=== PATIENT | male | born 1960 | race Two or more races ===

== ENCOUNTER 2020-03-10 15:32 | Inpatient (IN) | payer BC, OTHER ==
[~2020-03-10] VITALS: Ht 165.1 cm; Wt 59.9 kg
[2020-03-10] MEDS ORDERED: SODIUM CHLORIDE 0.9% 500 ML IV ONE (16:45)
[2020-03-10] MEDS ORDERED: DEXTROSE 50% WATER 50ML SYRINGE IV ONE (16:45)
[2020-03-10 17:02] LABS: HEMATOCRIT. 41.1 % (42.0-52.0); MEAN CORPUSCULAR VOLUME 93.9 fL (80.0-94.0); PLATELET 420 x1000/uL (130-400); RED BLOOD CELL COUNT 4.38 mill/uL (4.7-6.1); RED CELL DISTRIBUTION WIDTH 13.8 % (11.6-14.6)
[2020-03-10 17:11] LABS: CHLORIDE 93 mEq/L (98-107)
[2020-03-10 17:27] LABS: PLATELET ESTIMATE SLIGHTLY INCREASED
[2020-03-10] MEDS ORDERED: DEXAMETHASONE 10 MG/ML VIAL IV ONE (19:15)
[2020-03-10] MEDS ORDERED: ENOXAPARIN 60MG/0.6ML SYR SUBCUT ONE (19:15)
[2020-03-10] MEDS ORDERED: ENOXAPARIN 80MG/0.8ML SYR SUBCUT NR (19:30)
[2020-03-10] MEDS ORDERED: ONDANSETRON HCL 4MG/2ML INJ IV PRN (21:45)
[2020-03-10] MEDS ORDERED: ACETAMINOPHEN 325MG TABLET PO PRN (21:45)
[2020-03-10] MEDS ORDERED: ZOLPIDEM TARTRATE 5MG TABLET PO PRN (21:45)
[2020-03-10] MEDS ORDERED: ALBUTEROL 6.7GM HFA INHALER ORI PRN (21:45)
[2020-03-10] MEDS ORDERED: CEFTRIAXONE 1 G PREMIX 50 ML IV SCH ×2 (21:45→23:00)
[2020-03-10] MEDS ORDERED: MORPHINE SULFATE 4 MG/ML CPJ (NOT FOR IM USE) IV ONE (22:15)
[2020-03-10] MEDS: SODIUM CHLORIDE 0.9% INJ 3ML FLUSH IVF SCH (22:40)
[2020-03-11] MEDS ORDERED: AZITHROMYCIN 500 MG in DEXT 5% WATER 250 ML IV SCH ×2
[2020-03-11 04:00] LABS: HEMATOCRIT. 41.8 % (42.0-52.0); HEMOGLOBIN. 14.1 g/dL (14.0-18.0); MEAN CORPUSCULAR HEMOGLOBIN 31.8 pg (28.0-32.0); MEAN CORPUSCULAR VOLUME 94.1 fL (80.0-94.0); MEAN PLATELET VOLUME 6.8 fl (7.4-10.4); PLATELET 364 x1000/uL (130-400); RED BLOOD CELL COUNT 4.44 mill/uL (4.7-6.1); RED CELL DISTRIBUTION WIDTH 13.7 % (11.6-14.6)
[2020-03-11 04:06] LABS: CHLORIDE 90 mEq/L (98-107)
[2020-03-11 04:12] LABS: PHOSPHORUS 4.2 mg/dL (2.5-4.9)
[2020-03-11] MEDS: SODIUM CHLORIDE 0.9% INJ 3ML FLUSH IVF SCH ×2 (04:31→14:54)
[2020-03-11] MEDS: ACETAMINOPHEN 325MG TABLET PO PRN ×2 (04:34→21:37)
[2020-03-11 04:45] LABS: PLATELET ESTIMATE NORMAL
[2020-03-11] MEDS ORDERED: PANTOPRAZOLE SODIUM 40 MG/VIAL IV SCH (09:00)
[2020-03-11] MEDS ORDERED: INSULIN GLARGINE UD 100 UNITS/ML SYR SUBCUT SCH (10:00)
[2020-03-11] MEDS ORDERED: SODIUM POLYSTYRENE SULFONATE 15 G/60 ML BOT PO NR (10:00)
[2020-03-11] MEDS: INSULIN LISPRO 100 UNITS/ML SUBCUT SCH ×4 (10:20→21:29)
[2020-03-11] MEDS: FAMOTIDINE 20MG/2ML VIAL IV SCH (10:21)
[2020-03-11] MEDS: BLOOD SUGAR DIAGNOSTIC STRIP TEST SCH ×4 (10:21→21:42)
[2020-03-11 10:51] LABS: BG BASE EXCESS -2.7 mmol/L (-2.0-2.0); BG CARBOXYHEMOGLOBIN 0.7 % (0.5-1.5); BG DEOXYHEMOGLOBIN 10.3 % (0.0-5.0); BG FRACTION INSPIRED OXYGEN 100; BG HCO3 ACT 20.4 mmol/L (22.0-26.0); BG METHEMOGLOBIN 0.3 % (0.0-1.5); BG OXYGEN SATURATION 89.6 % (92.0-98.5); BG OXYHEMOGLOBIN 88.7 % (94.0-97.0); BG PCO2 30.6 mmHg (35.0-45.0); BG PH 7.441 (7.350-7.450); BG PO2 57.4 mmHg (75.0-100.0); BG SAMPLE SITE RIGHT BRACHIAL; BG TOTAL HEMOGLOBIN 13.9 g/dL (12.0-18.0); BG VENT MODE MASK - NRB
[2020-03-11] MEDS: MYCOPHENOLATE MOFETIL 250MG CAPSULE PO SCH ×2 (13:42→21:41)
[2020-03-11] MEDS: GUAIFENESIN 600MG ER TABLET PO SCH ×2 (13:43→21:27)
[2020-03-11] MEDS: ENOXAPARIN 60MG/0.6ML SYR SUBCUT SCH ×2 (13:44→21:42)
[2020-03-11] MEDS: DEXAMETHASONE 10 MG/ML VIAL IV SCH (13:45)
[2020-03-11] MEDS: CHOLECALCIFEROL (D3) 1000 UNIT TABLET PO SCH (18:20)
[2020-03-11] MEDS: DOXYCYCLINE HYCLATE 100MG CAPSULE PO SCH (18:20)
[2020-03-11] MEDS: SODIUM CHLORIDE 0.9% 1,000 ML IV SCH (18:20)
[2020-03-11] MEDS: CEFTRIAXONE 1,000 MG in DEXTROSE 5% WATER 50 ML IV SCH (18:21)
[2020-03-11 20:00] VITALS: BP 164/92
[2020-03-11] MEDS ORDERED: CEFTRIAXONE 1 G PREMIX 50 ML IV SCH (23:00)
[2020-03-12] MEDS ORDERED: AZITHROMYCIN 500 MG in DEXT 5% WATER 250 ML IV SCH ×2
[2020-03-12] MEDS: DIPHENHYDRAMINE 50MG/ML VIAL IV PRN (01:31)
[2020-03-12 04:00] VITALS: BP 187/105
[2020-03-12] MEDS: SODIUM CHLORIDE 0.9% INJ 3ML FLUSH IVF SCH ×4 (05:14→21:22)
[2020-03-12] MEDS: SODIUM CHLORIDE 0.9% 1,000 ML IV SCH (05:14)
[2020-03-12] MEDS: DOXYCYCLINE HYCLATE 100MG CAPSULE PO SCH ×2 (05:16→18:13)
[2020-03-12] MEDS: CLONIDINE 0.1MG TABLET PO PRN ×2 (05:20→21:21)
[2020-03-12] MEDS: BENZONATATE 100MG CAPSULE PO PRN (05:36)
[2020-03-12] MEDS: INSULIN LISPRO 100 UNITS/ML SUBCUT SCH ×4 (06:24→21:00)
[2020-03-12] MEDS: BLOOD SUGAR DIAGNOSTIC STRIP TEST SCH ×4 (06:25→21:13)
[2020-03-12 06:52] LABS: INR 1.1; PROTHROMBIN TIME 11.4 sec (9.6-11.0)
[2020-03-12 06:59] LABS: CHLORIDE 96 mEq/L (98-107)
[2020-03-12 07:02] LABS: HEMOGLOBIN. 13.9 g/dL (14.0-18.0); MEAN CORPUSCULAR HEMOGLOBIN 31.9 pg (28.0-32.0); MEAN CORPUSCULAR VOLUME 94.2 fL (80.0-94.0); MEAN PLATELET VOLUME 7.2 fl (7.4-10.4); PLATELET 431 x1000/uL (130-400); RED BLOOD CELL COUNT 4.36 mill/uL (4.7-6.1); RED CELL DISTRIBUTION WIDTH 13.9 % (11.6-14.6)
[2020-03-12] MEDS: CHOLECALCIFEROL (D3) 1000 UNIT TABLET PO SCH (09:05)
[2020-03-12] MEDS: FAMOTIDINE 20MG/2ML VIAL IV SCH (09:05)
[2020-03-12] MEDS: ENOXAPARIN 60MG/0.6ML SYR SUBCUT SCH ×2 (09:05→21:22)
[2020-03-12] MEDS: MYCOPHENOLATE MOFETIL 250MG CAPSULE PO SCH ×2 (09:05→21:20)
[2020-03-12] MEDS: GUAIFENESIN 600MG ER TABLET PO SCH ×2 (09:05→21:21)
[2020-03-12] MEDS: DEXAMETHASONE 10 MG/ML VIAL IV SCH (11:42)
[2020-03-12 12:01] VITALS: BP 176/96
[2020-03-12] MEDS: INSULIN GLARGINE UD 100 UNITS/ML SYR SUBCUT SCH (13:06)
[2020-03-12] MEDS: ACETAMINOPHEN 325MG TABLET PO PRN (13:11)
[2020-03-12] MEDS ORDERED: LOPERAMIDE HCL 2MG CAPSULE PO PRN (15:00)
[2020-03-12 18:06] LABS: PLATELET ESTIMATE INCREASED
[2020-03-12] MEDS: CEFTRIAXONE 1,000 MG in DEXTROSE 5% WATER 50 ML IV SCH (18:13)
[2020-03-13] VITALS: BP 165/89
[2020-03-13 04:00] VITALS: BP 160/85
[2020-03-13] MEDS: SODIUM CHLORIDE 0.9% INJ 3ML FLUSH IVF SCH ×3 (06:00→21:39)
[2020-03-13] MEDS: DOXYCYCLINE HYCLATE 100MG CAPSULE PO SCH ×2 (07:18→17:17)
[2020-03-13] MEDS: BLOOD SUGAR DIAGNOSTIC STRIP TEST SCH ×4 (07:18→21:37)
[2020-03-13] MEDS: SODIUM CHLORIDE 0.9% 1,000 ML IV SCH ×2 (07:18→21:39)
[2020-03-13] MEDS: INSULIN LISPRO 100 UNITS/ML SUBCUT SCH ×4 (07:19→21:37)
[2020-03-13 08:00] VITALS: BP 198/110
[2020-03-13] MEDS: FAMOTIDINE 20MG/2ML VIAL IV SCH (09:00)
[2020-03-13] MEDS: GUAIFENESIN 600MG ER TABLET PO SCH ×2 (10:58→21:35)
[2020-03-13] MEDS: CHOLECALCIFEROL (D3) 1000 UNIT TABLET PO SCH (10:58)
[2020-03-13] MEDS: MYCOPHENOLATE MOFETIL 250MG CAPSULE PO SCH ×2 (10:58→21:37)
[2020-03-13] MEDS: ENOXAPARIN 60MG/0.6ML SYR SUBCUT SCH ×2 (10:59→21:38)
[2020-03-13] MEDS: INSULIN GLARGINE UD 100 UNITS/ML SYR SUBCUT SCH (11:02)
[2020-03-13] MEDS: DEXAMETHASONE 10 MG/ML VIAL IV SCH (11:04)
[2020-03-13 16:00] VITALS: BP 183/93
[2020-03-13] MEDS: CEFTRIAXONE 1,000 MG in DEXTROSE 5% WATER 50 ML IV SCH (17:17)
[2020-03-13 20:00] VITALS: BP 168/80
[2020-03-13] MEDS: AMLODIPINE 5MG TABLET PO SCH (21:36)
[2020-03-14] VITALS (7 sets, daily range): BP systolic 144–188; BP diastolic 60–94
[2020-03-14] MEDS: CLONIDINE 0.1MG TABLET PO PRN ×3 (02:45→18:02)
[2020-03-14] MEDS: INSULIN LISPRO 100 UNITS/ML SUBCUT SCH ×4 (06:03→20:37)
[2020-03-14] MEDS: DOXYCYCLINE HYCLATE 100MG CAPSULE PO SCH ×2 (06:03→18:02)
[2020-03-14] MEDS: BLOOD SUGAR DIAGNOSTIC STRIP TEST SCH ×4 (06:03→20:37)
[2020-03-14] MEDS: SODIUM CHLORIDE 0.9% INJ 3ML FLUSH IVF SCH ×3 (06:03→22:20)
[2020-03-14] MEDS: ENOXAPARIN 60MG/0.6ML SYR SUBCUT SCH ×2 (08:55→20:36)
[2020-03-14] MEDS: FAMOTIDINE 20MG/2ML VIAL IV SCH (08:56)
[2020-03-14] MEDS: MYCOPHENOLATE MOFETIL 250MG CAPSULE PO SCH ×2 (08:56→20:35)
[2020-03-14] MEDS: AMLODIPINE 5MG TABLET PO SCH ×2 (08:56→20:34)
[2020-03-14] MEDS: CHOLECALCIFEROL (D3) 1000 UNIT TABLET PO SCH (08:56)
[2020-03-14 09:02] LABS: BG BASE EXCESS 1.1 mmol/L (-2.0-2.0); BG CARBOXYHEMOGLOBIN 0.2 % (0.5-1.5); BG DEOXYHEMOGLOBIN 2.8 % (0.0-5.0); BG FRACTION INSPIRED OXYGEN 100; BG HCO3 ACT 24.8 mmol/L (22.0-26.0); BG METHEMOGLOBIN 0.3 % (0.0-1.5); BG OXYGEN SATURATION 97.2 % (92.0-98.5); BG OXYHEMOGLOBIN 96.7 % (94.0-97.0); BG PCO2 36.3 mmHg (35.0-45.0); BG PH 7.452 (7.350-7.450); BG PO2 98.6 mmHg (75.0-100.0); BG SAMPLE SITE RIGHT BRACHIAL; BG TOTAL HEMOGLOBIN 12.8 g/dL (12.0-18.0); BG VENT MODE MASK - NRB
[2020-03-14] MEDS: INSULIN GLARGINE UD 100 UNITS/ML SYR SUBCUT SCH ×2 (10:00→22:21)
[2020-03-14] MEDS ORDERED: CLONIDINE 0.1MG TABLET PO SCH (11:00)
[2020-03-14] MEDS: DEXAMETHASONE 10 MG/ML VIAL IV SCH (11:04)
[2020-03-14] MEDS: GUAIFENESIN 600MG ER TABLET PO SCH ×2 (12:27→20:34)
[2020-03-14] MEDS: LOSARTAN POTASSIUM 100 MG TABLET PO SCH (12:40)
[2020-03-14] MEDS: CEFTRIAXONE 1,000 MG in DEXTROSE 5% WATER 50 ML IV SCH (18:00)
[2020-03-14] MEDS: SODIUM CHLORIDE 0.9% 1,000 ML IV SCH (20:34)
[2020-03-14] MEDS: ACETAMINOPHEN 325MG TABLET PO PRN ×2 (20:48→23:43)
[2020-03-15] VITALS: BP 123/60
[2020-03-15 04:00] VITALS: BP 167/87
[2020-03-15 06:28] LABS: HEMATOCRIT. 40.9 % (42.0-52.0); HEMOGLOBIN. 13.3 g/dL (14.0-18.0); MEAN CORPUSCULAR VOLUME 95.1 fL (80.0-94.0); MEAN PLATELET VOLUME 6.8 fl (7.4-10.4); PLATELET 399 x1000/uL (130-400); RED CELL DISTRIBUTION WIDTH 13.8 % (11.6-14.6)
[2020-03-15 06:35] LABS: CHLORIDE 103 mEq/L (98-107)
[2020-03-15] MEDS: SODIUM CHLORIDE 0.9% INJ 3ML FLUSH IVF SCH ×3 (06:45→20:50)
[2020-03-15] MEDS: DOXYCYCLINE HYCLATE 100MG CAPSULE PO SCH ×2 (06:45→17:27)
[2020-03-15] MEDS: INSULIN LISPRO 100 UNITS/ML SUBCUT SCH ×4 (06:46→20:52)
[2020-03-15] MEDS: BLOOD SUGAR DIAGNOSTIC STRIP TEST SCH ×4 (06:46→20:52)
[2020-03-15 08:00] VITALS: BP 139/76
[2020-03-15] MEDS: GUAIFENESIN 600MG ER TABLET PO SCH ×2 (09:25→20:49)
[2020-03-15] MEDS: AMLODIPINE 5MG TABLET PO SCH ×2 (09:25→20:49)
[2020-03-15] MEDS: LOSARTAN POTASSIUM 100 MG TABLET PO SCH (09:25)
[2020-03-15] MEDS: CHOLECALCIFEROL (D3) 1000 UNIT TABLET PO SCH (09:25)
[2020-03-15] MEDS: FAMOTIDINE 20MG/2ML VIAL IV SCH (09:25)
[2020-03-15] MEDS: ENOXAPARIN 60MG/0.6ML SYR SUBCUT SCH ×2 (09:26→20:49)
[2020-03-15] MEDS: MYCOPHENOLATE MOFETIL 250MG CAPSULE PO SCH ×2 (09:27→20:49)
[2020-03-15 10:59] LABS: PLATELET ESTIMATE NORMAL
[2020-03-15] MEDS ORDERED: ALBUTEROL 6.7GM HFA INHALER ORI PRN (11:15)
[2020-03-15 12:00] VITALS: BP 141/72
[2020-03-15] MEDS: ALBUTEROL 6.7GM HFA INHALER ORI SCH ×2 (13:25→17:24)
[2020-03-15] MEDS: INSULIN GLARGINE UD 100 UNITS/ML SYR SUBCUT SCH ×2 (13:26→22:47)
[2020-03-15 16:00] VITALS: BP 132/68
[2020-03-15] MEDS: ACETAMINOPHEN 325MG TABLET PO PRN ×2 (17:23→22:42)
[2020-03-15 20:00] VITALS: BP 110/79
[2020-03-15] MEDS: BENZONATATE 100MG CAPSULE PO PRN (22:42)
[2020-03-16] VITALS: BP 121/94
[2020-03-16] MEDS: ALBUTEROL 6.7GM HFA INHALER ORI SCH ×5 (00:48→22:59)
[2020-03-16] MEDS: DIPHENHYDRAMINE 50MG/ML VIAL IV PRN ×2 (00:51→23:01)
[2020-03-16 04:00] VITALS: BP 116/80
[2020-03-16] MEDS: ACETAMINOPHEN 325MG TABLET PO PRN ×3 (04:25→21:14)
[2020-03-16] MEDS: DOXYCYCLINE HYCLATE 100MG CAPSULE PO SCH (05:40)
[2020-03-16] MEDS: SODIUM CHLORIDE 0.9% INJ 3ML FLUSH IVF SCH ×3 (05:40→21:09)
[2020-03-16] MEDS: DEXTROSE 50% WATER 50ML SYRINGE IV PRN ×2 (05:41→23:07)
[2020-03-16] MEDS: BLOOD SUGAR DIAGNOSTIC STRIP TEST SCH ×4 (07:30→21:09)
[2020-03-16] MEDS: INSULIN LISPRO 100 UNITS/ML SUBCUT SCH ×4 (07:40→21:14)
[2020-03-16 08:46] LABS: CHLORIDE 102 mEq/L (98-107); HEMATOCRIT. 40.7 % (42.0-52.0); HEMOGLOBIN. 13.3 g/dL (14.0-18.0); MEAN CORPUSCULAR HEMOGLOBIN 30.9 pg (28.0-32.0); MEAN CORPUSCULAR VOLUME 94.5 fL (80.0-94.0); MEAN PLATELET VOLUME 7.2 fl (7.4-10.4); PLATELET 481 x1000/uL (130-400)
[2020-03-16] MEDS: INSULIN GLARGINE UD 100 UNITS/ML SYR SUBCUT SCH ×2 (11:11→22:54)
[2020-03-16] MEDS: CHOLECALCIFEROL (D3) 1000 UNIT TABLET PO SCH (11:12)
[2020-03-16] MEDS: LOSARTAN POTASSIUM 100 MG TABLET PO SCH (11:12)
[2020-03-16] MEDS: GUAIFENESIN 600MG ER TABLET PO SCH ×2 (11:12→21:08)
[2020-03-16] MEDS: MYCOPHENOLATE MOFETIL 250MG CAPSULE PO SCH ×2 (11:12→21:08)
[2020-03-16] MEDS: FAMOTIDINE 20MG/2ML VIAL IV SCH (11:12)
[2020-03-16] MEDS: ENOXAPARIN 60MG/0.6ML SYR SUBCUT SCH ×2 (11:12→21:09)
[2020-03-16] MEDS: DEXAMETHASONE 10 MG/ML VIAL IV SCH (11:13)
[2020-03-16] MEDS: AMLODIPINE 5MG TABLET PO SCH ×2 (11:29→21:08)
[2020-03-16 12:02] VITALS: BP 147/72
[2020-03-16 12:57] VITALS: BP 147/72
[2020-03-16 13:54] LABS: PLATELET ESTIMATE SLIGHTLY INCREASED
[2020-03-16 16:06] VITALS: BP 124/66
[2020-03-16 20:00] VITALS: BP 136/76
[2020-03-17] VITALS: BP 126/78
[2020-03-17 04:00] VITALS: BP 154/75
[2020-03-17] MEDS: ACETAMINOPHEN 325MG TABLET PO PRN ×2 (05:32→22:01)
[2020-03-17] MEDS: SODIUM CHLORIDE 0.9% INJ 3ML FLUSH IVF SCH ×3 (05:39→22:02)
[2020-03-17] MEDS: ALBUTEROL 6.7GM HFA INHALER ORI SCH ×3 (05:39→18:12)
[2020-03-17] MEDS: BLOOD SUGAR DIAGNOSTIC STRIP TEST SCH ×4 (07:01→21:00)
[2020-03-17] MEDS: INSULIN LISPRO 100 UNITS/ML SUBCUT SCH ×4 (07:40→22:04)
[2020-03-17 08:00] VITALS: BP 132/64
[2020-03-17 08:26] LABS: CHLORIDE 99 mEq/L (98-107)
[2020-03-17 08:30] LABS: BASOPHILS % 0.2 % (0.0-2.0); EOSINOPHILS % 0.1 % (0.0-5.0); HEMATOCRIT. 37.6 % (42.0-52.0); HEMOGLOBIN. 12.8 g/dL (14.0-18.0); LYMPHOCYTES % 7.1 % (20.0-50.0); MEAN CORPUSCULAR HEMOGLOBIN 31.5 pg (28.0-32.0); MEAN CORPUSCULAR VOLUME 92.9 fL (80.0-94.0); MEAN PLATELET VOLUME 7.5 fl (7.4-10.4); MONOCYTES % 10.7 % (2.0-8.0); NEUTROPHILS % 81.9 % (40.0-76.0); PLATELET 447 x1000/uL (130-400); RED BLOOD CELL COUNT 4.05 mill/uL (4.7-6.1); RED CELL DISTRIBUTION WIDTH 13.4 % (11.6-14.6)
[2020-03-17] MEDS: FAMOTIDINE 20MG/2ML VIAL IV SCH (10:24)
[2020-03-17] MEDS: AMLODIPINE 5MG TABLET PO SCH ×2 (10:25→22:01)
[2020-03-17] MEDS: MYCOPHENOLATE MOFETIL 250MG CAPSULE PO SCH ×2 (10:25→22:01)
[2020-03-17] MEDS: CHOLECALCIFEROL (D3) 1000 UNIT TABLET PO SCH (10:25)
[2020-03-17] MEDS: GUAIFENESIN 600MG ER TABLET PO SCH ×2 (10:25→22:06)
[2020-03-17] MEDS: DEXAMETHASONE 10 MG/ML VIAL IV SCH (10:25)
[2020-03-17] MEDS: LOSARTAN POTASSIUM 100 MG TABLET PO SCH (10:25)
[2020-03-17] MEDS: ENOXAPARIN 60MG/0.6ML SYR SUBCUT SCH ×2 (10:26→22:10)
[2020-03-17] MEDS: INSULIN GLARGINE UD 100 UNITS/ML SYR SUBCUT SCH ×2 (10:27→22:02)
[2020-03-17 12:00] VITALS: BP 120/67
[2020-03-17 16:00] VITALS: BP 107/56
[2020-03-17 20:00] VITALS: BP 124/56
[2020-03-18] VITALS: BP 110/55
[2020-03-18] MEDS: ALBUTEROL 6.7GM HFA INHALER ORI SCH ×5 (00:29→22:05)
[2020-03-18 04:00] VITALS: BP 125/63
[2020-03-18] MEDS: INSULIN LISPRO 100 UNITS/ML SUBCUT SCH ×4 (06:00→21:59)
[2020-03-18] MEDS: BLOOD SUGAR DIAGNOSTIC STRIP TEST SCH ×4 (06:00→20:04)
[2020-03-18] MEDS: SODIUM CHLORIDE 0.9% INJ 3ML FLUSH IVF SCH ×3 (06:01→22:03)
[2020-03-18 07:18] LABS: CHLORIDE 100 mEq/L (98-107)
[2020-03-18 07:29] LABS: HEMOGLOBIN. 12.2 g/dL (14.0-18.0); MEAN CORPUSCULAR HEMOGLOBIN 31.4 pg (28.0-32.0); MEAN CORPUSCULAR VOLUME 92.8 fL (80.0-94.0); MEAN PLATELET VOLUME 7.7 fl (7.4-10.4); PLATELET 412 x1000/uL (130-400); RED BLOOD CELL COUNT 3.88 mill/uL (4.7-6.1); RED CELL DISTRIBUTION WIDTH 13.7 % (11.6-14.6)
[2020-03-18 08:00] VITALS: BP 100/56
[2020-03-18] MEDS: AMLODIPINE 5MG TABLET PO SCH ×2 (09:00→21:51)
[2020-03-18] MEDS: LOSARTAN POTASSIUM 100 MG TABLET PO SCH (09:00)
[2020-03-18] MEDS: INSULIN GLARGINE UD 100 UNITS/ML SYR SUBCUT SCH ×2 (10:27→21:59)
[2020-03-18] MEDS: ACETAMINOPHEN 325MG TABLET PO PRN ×2 (10:31→17:29)
[2020-03-18] MEDS: GUAIFENESIN 600MG ER TABLET PO SCH ×2 (10:31→21:51)
[2020-03-18] MEDS: CHOLECALCIFEROL (D3) 1000 UNIT TABLET PO SCH (10:32)
[2020-03-18] MEDS: MYCOPHENOLATE MOFETIL 250MG CAPSULE PO SCH ×2 (10:32→21:51)
[2020-03-18] MEDS: ENOXAPARIN 60MG/0.6ML SYR SUBCUT SCH ×2 (10:33→21:51)
[2020-03-18] MEDS: FAMOTIDINE 20MG/2ML VIAL IV SCH (10:33)
[2020-03-18] MEDS: DEXAMETHASONE 10 MG/ML VIAL IV SCH (10:34)
[2020-03-18 11:29] LABS: PLATELET ESTIMATE INCREASED
[2020-03-18 12:00] VITALS: BP 137/64
[2020-03-18 16:00] VITALS: BP 131/68
[2020-03-18] MEDS: BENZONATATE 100MG CAPSULE PO PRN (17:28)
[2020-03-18 20:00] VITALS: BP 145/75
[2020-03-19] VITALS: BP 138/66
[2020-03-19] MEDS: ACETAMINOPHEN 325MG TABLET PO PRN ×2 (00:35→18:21)
[2020-03-19] MEDS: BENZONATATE 100MG CAPSULE PO PRN ×3 (00:35→23:05)
[2020-03-19] MEDS: DIPHENHYDRAMINE 50MG/ML VIAL IV PRN ×2 (01:24→22:37)
[2020-03-19 04:00] VITALS: BP 128/60
[2020-03-19] MEDS: BLOOD SUGAR DIAGNOSTIC STRIP TEST SCH ×4 (05:48→20:20)
[2020-03-19] MEDS: SODIUM CHLORIDE 0.9% INJ 3ML FLUSH IVF SCH ×3 (05:49→22:39)
[2020-03-19] MEDS: ALBUTEROL 6.7GM HFA INHALER ORI SCH ×3 (05:49→18:15)
[2020-03-19] MEDS: INSULIN LISPRO 100 UNITS/ML SUBCUT SCH ×4 (05:51→23:06)
[2020-03-19 08:00] VITALS: BP 158/85
[2020-03-19] MEDS: CHOLECALCIFEROL (D3) 1000 UNIT TABLET PO SCH (10:21)
[2020-03-19] MEDS: LOSARTAN POTASSIUM 100 MG TABLET PO SCH (10:21)
[2020-03-19] MEDS: GUAIFENESIN 600MG ER TABLET PO SCH ×2 (10:21→23:01)
[2020-03-19] MEDS: MYCOPHENOLATE MOFETIL 250MG CAPSULE PO SCH ×2 (10:22→23:04)
[2020-03-19] MEDS: DEXAMETHASONE 10 MG/ML VIAL IV SCH (10:22)
[2020-03-19] MEDS: AMLODIPINE 5MG TABLET PO SCH ×2 (10:22→23:04)
[2020-03-19] MEDS: ENOXAPARIN 60MG/0.6ML SYR SUBCUT SCH ×2 (10:23→23:01)
[2020-03-19] MEDS: FAMOTIDINE 20MG/2ML VIAL IV SCH (10:23)
[2020-03-19] MEDS: INSULIN GLARGINE UD 100 UNITS/ML SYR SUBCUT SCH ×2 (10:40→22:32)
[2020-03-19 12:00] VITALS: BP 149/76
[2020-03-19 16:00] VITALS: BP 124/75
[2020-03-19 20:00] VITALS: BP 133/69
[2020-03-20] VITALS: BP 139/80
[2020-03-20] MEDS: ACETAMINOPHEN 325MG TABLET PO PRN (00:47)
[2020-03-20 04:00] VITALS: BP 149/80
[2020-03-20] MEDS: BLOOD SUGAR DIAGNOSTIC STRIP TEST SCH ×4 (04:56→21:00)
[2020-03-20] MEDS: ALBUTEROL 6.7GM HFA INHALER ORI SCH ×4 (04:59→18:18)
[2020-03-20] MEDS: SODIUM CHLORIDE 0.9% INJ 3ML FLUSH IVF SCH ×3 (04:59→22:38)
[2020-03-20] MEDS: INSULIN LISPRO 100 UNITS/ML SUBCUT SCH ×4 (05:07→22:39)
[2020-03-20 08:00] VITALS: BP 120/60
[2020-03-20] MEDS: MYCOPHENOLATE MOFETIL 250MG CAPSULE PO SCH ×2 (08:46→22:37)
[2020-03-20] MEDS: GUAIFENESIN 600MG ER TABLET PO SCH ×2 (08:46→22:37)
[2020-03-20] MEDS: ENOXAPARIN 60MG/0.6ML SYR SUBCUT SCH ×2 (08:46→22:40)
[2020-03-20] MEDS: FAMOTIDINE 20MG/2ML VIAL IV SCH (08:46)
[2020-03-20] MEDS: DEXAMETHASONE 10 MG/ML VIAL IV SCH (08:46)
[2020-03-20] MEDS: CHOLECALCIFEROL (D3) 1000 UNIT TABLET PO SCH (08:46)
[2020-03-20] MEDS: AMLODIPINE 5MG TABLET PO SCH ×2 (08:47→22:37)
[2020-03-20] MEDS: LOSARTAN POTASSIUM 100 MG TABLET PO SCH (08:47)
[2020-03-20] MEDS: INSULIN GLARGINE UD 100 UNITS/ML SYR SUBCUT SCH ×2 (10:37→22:40)
[2020-03-20 12:00] VITALS: BP 122/68
[2020-03-20 16:00] VITALS: BP 135/68
[2020-03-20] MEDS: ERGOCALCIFEROL 50000UNITS CAPSULE PO SCH (18:22)
[2020-03-20 20:00] VITALS: BP 125/79
[2020-03-21] VITALS: BP 117/71
[2020-03-21] MEDS: ALBUTEROL 6.7GM HFA INHALER ORI SCH ×4 (00:59→17:38)
[2020-03-21] MEDS: DIPHENHYDRAMINE 50MG/ML VIAL IV PRN ×2 (02:35→22:20)
[2020-03-21 04:00] VITALS: BP 125/73
[2020-03-21] MEDS: BLOOD SUGAR DIAGNOSTIC STRIP TEST SCH ×4 (06:25→21:00)
[2020-03-21] MEDS: SODIUM CHLORIDE 0.9% INJ 3ML FLUSH IVF SCH ×3 (06:27→22:21)
[2020-03-21] MEDS: INSULIN LISPRO 100 UNITS/ML SUBCUT SCH ×4 (07:40→22:23)
[2020-03-21 08:00] VITALS: BP 122/69
[2020-03-21] MEDS: LOSARTAN POTASSIUM 100 MG TABLET PO SCH (09:11)
[2020-03-21] MEDS: DEXAMETHASONE 10 MG/ML VIAL IV SCH (09:11)
[2020-03-21] MEDS: ENOXAPARIN 60MG/0.6ML SYR SUBCUT SCH ×2 (09:11→22:20)
[2020-03-21] MEDS: GUAIFENESIN 600MG ER TABLET PO SCH ×2 (09:11→22:20)
[2020-03-21] MEDS: FAMOTIDINE 20MG/2ML VIAL IV SCH (09:11)
[2020-03-21] MEDS: MYCOPHENOLATE MOFETIL 250MG CAPSULE PO SCH ×2 (09:12→22:19)
[2020-03-21] MEDS: AMLODIPINE 5MG TABLET PO SCH ×2 (09:27→21:00)
[2020-03-21 12:00] VITALS: BP 122/78
[2020-03-21] MEDS: INSULIN GLARGINE UD 100 UNITS/ML SYR SUBCUT SCH ×2 (12:12→22:24)
[2020-03-21 16:00] VITALS: BP 119/67
[2020-03-21 20:00] VITALS: BP 98/60
[2020-03-22] VITALS: BP 112/62
[2020-03-22 04:00] VITALS: BP 141/83
[2020-03-22] MEDS: BLOOD SUGAR DIAGNOSTIC STRIP TEST SCH ×4 (06:37→21:00)
[2020-03-22] MEDS: BENZONATATE 100MG CAPSULE PO PRN (06:38)
[2020-03-22] MEDS: SODIUM CHLORIDE 0.9% INJ 3ML FLUSH IVF SCH ×3 (06:38→22:19)
[2020-03-22] MEDS: ALBUTEROL 6.7GM HFA INHALER ORI SCH ×4 (06:39→17:46)
[2020-03-22 07:15] LABS: HEMATOCRIT. 38.1 % (42.0-52.0); HEMOGLOBIN. 12.8 g/dL (14.0-18.0); MEAN CORPUSCULAR HEMOGLOBIN 31.3 pg (28.0-32.0); MEAN PLATELET VOLUME 7.8 fl (7.4-10.4); PLATELET 437 x1000/uL (130-400); RED BLOOD CELL COUNT 4.09 mill/uL (4.7-6.1); RED CELL DISTRIBUTION WIDTH 13.6 % (11.6-14.6)
[2020-03-22] MEDS: INSULIN LISPRO 100 UNITS/ML SUBCUT SCH ×4 (07:40→22:20)
[2020-03-22 07:43] LABS: CHLORIDE 97 mEq/L (98-107)
[2020-03-22] MEDS: AMLODIPINE 5MG TABLET PO SCH ×2 (09:00→22:02)
[2020-03-22] MEDS: LOSARTAN POTASSIUM 100 MG TABLET PO SCH (09:00)
[2020-03-22 09:15] VITALS: BP 98/59
[2020-03-22] MEDS: GUAIFENESIN 600MG ER TABLET PO SCH ×2 (09:44→22:02)
[2020-03-22] MEDS: FAMOTIDINE 20MG/2ML VIAL IV SCH (09:44)
[2020-03-22] MEDS: MYCOPHENOLATE MOFETIL 250MG CAPSULE PO SCH ×2 (09:44→22:01)
[2020-03-22] MEDS: ENOXAPARIN 60MG/0.6ML SYR SUBCUT SCH ×2 (09:45→22:03)
[2020-03-22] MEDS: INSULIN GLARGINE UD 100 UNITS/ML SYR SUBCUT SCH ×2 (10:36→22:21)
[2020-03-22] MEDS ORDERED: SODIUM POLYSTYRENE SULFONATE 15 G/60 ML BOT PO NR (11:00)
[2020-03-22 12:44] VITALS: BP 120/73
[2020-03-22 17:04] VITALS: BP 113/64
[2020-03-22 20:00] VITALS: BP 138/66
[2020-03-23] VITALS: BP 128/66
[2020-03-23 04:00] VITALS: BP 114/58
[2020-03-23] MEDS: SODIUM CHLORIDE 0.9% INJ 3ML FLUSH IVF SCH ×3 (06:14→20:59)
[2020-03-23] MEDS: BLOOD SUGAR DIAGNOSTIC STRIP TEST SCH ×4 (06:14→20:45)
[2020-03-23] MEDS: ALBUTEROL 6.7GM HFA INHALER ORI SCH ×4 (06:14→18:00)
[2020-03-23] MEDS: INSULIN LISPRO 100 UNITS/ML SUBCUT SCH ×4 (06:20→20:44)
[2020-03-23 07:33] LABS: HEMATOCRIT. 37.3 % (42.0-52.0); HEMOGLOBIN. 12.5 g/dL (14.0-18.0); MEAN CORPUSCULAR HEMOGLOBIN 31.4 pg (28.0-32.0); MEAN CORPUSCULAR VOLUME 93.5 fL (80.0-94.0); MEAN PLATELET VOLUME 7.5 fl (7.4-10.4); PLATELET 412 x1000/uL (130-400); RED BLOOD CELL COUNT 3.99 mill/uL (4.7-6.1)
[2020-03-23 07:46] LABS: CHLORIDE 98 mEq/L (98-107)
[2020-03-23 09:00] VITALS: BP 138/77
[2020-03-23] MEDS: FAMOTIDINE 20MG/2ML VIAL IV SCH (10:52)
[2020-03-23] MEDS: GUAIFENESIN 600MG ER TABLET PO SCH ×2 (10:52→20:58)
[2020-03-23] MEDS: MYCOPHENOLATE MOFETIL 250MG CAPSULE PO SCH ×2 (10:52→20:58)
[2020-03-23] MEDS: LOSARTAN POTASSIUM 100 MG TABLET PO SCH (10:52)
[2020-03-23] MEDS: ENOXAPARIN 60MG/0.6ML SYR SUBCUT SCH ×2 (10:52→20:59)
[2020-03-23] MEDS: AMLODIPINE 5MG TABLET PO SCH ×2 (10:55→20:58)
[2020-03-23] MEDS: INSULIN GLARGINE UD 100 UNITS/ML SYR SUBCUT SCH ×2 (11:03→23:02)
[2020-03-23 11:56] VITALS: BP 147/80
[2020-03-23] MEDS: ACETAMINOPHEN 325MG TABLET PO PRN ×3 (12:01→18:14)
[2020-03-23 15:34] LABS: PLATELET ESTIMATE INCREASED
[2020-03-23 16:23] LABS: PLATELET ESTIMATE INCREAS
[2020-03-23 16:47] VITALS: BP 136/74
[2020-03-23 20:00] VITALS: BP 129/73
[2020-03-24] VITALS: BP 142/71
[2020-03-24] MEDS: ALBUTEROL 6.7GM HFA INHALER ORI SCH ×5 (00:28→23:58)
[2020-03-24] MEDS: ACETAMINOPHEN 325MG TABLET PO PRN ×2 (00:28→20:25)
[2020-03-24 04:00] VITALS: BP 138/78
[2020-03-24] MEDS: BLOOD SUGAR DIAGNOSTIC STRIP TEST SCH ×4 (06:13→20:24)
[2020-03-24] MEDS: INSULIN LISPRO 100 UNITS/ML SUBCUT SCH ×4 (06:13→20:27)
[2020-03-24] MEDS: SODIUM CHLORIDE 0.9% INJ 3ML FLUSH IVF SCH ×3 (06:25→20:24)
[2020-03-24 08:00] VITALS: BP 123/58
[2020-03-24] MEDS: FAMOTIDINE 20MG/2ML VIAL IV SCH (08:26)
[2020-03-24] MEDS: LOSARTAN POTASSIUM 100 MG TABLET PO SCH (08:26)
[2020-03-24] MEDS: MYCOPHENOLATE MOFETIL 250MG CAPSULE PO SCH ×2 (08:26→20:24)
[2020-03-24] MEDS: AMLODIPINE 5MG TABLET PO SCH ×2 (08:28→20:27)
[2020-03-24] MEDS: ENOXAPARIN 60MG/0.6ML SYR SUBCUT SCH ×3 (08:28→20:24)
[2020-03-24] MEDS: GUAIFENESIN 600MG ER TABLET PO SCH ×2 (09:00→20:25)
[2020-03-24] MEDS: INSULIN GLARGINE UD 100 UNITS/ML SYR SUBCUT SCH ×3 (10:00→21:24)
[2020-03-24 12:00] VITALS: BP 119/64
[2020-03-24 16:00] VITALS: BP 127/55
[2020-03-24 20:00] VITALS: BP 130/70
[2020-03-24] MEDS: DIPHENHYDRAMINE 50MG/ML VIAL IV PRN (21:24)
[2020-03-25] VITALS: BP 103/63
[2020-03-25 04:00] VITALS: BP 109/53
[2020-03-25] MEDS: SODIUM CHLORIDE 0.9% INJ 3ML FLUSH IVF SCH ×2 (05:06→22:00)
[2020-03-25] MEDS: ALBUTEROL 6.7GM HFA INHALER ORI SCH ×3 (05:07→17:40)
[2020-03-25] MEDS: BLOOD SUGAR DIAGNOSTIC STRIP TEST SCH ×4 (06:12→21:00)
[2020-03-25] MEDS: INSULIN LISPRO 100 UNITS/ML SUBCUT SCH ×4 (06:12→21:00)
[2020-03-25 06:52] LABS: HEMATOCRIT. 37.1 % (42.0-52.0); HEMOGLOBIN. 12.6 g/dL (14.0-18.0); MEAN CORPUSCULAR HEMOGLOBIN 31.9 pg (28.0-32.0); MEAN PLATELET VOLUME 7.7 fl (7.4-10.4); PLATELET 379 x1000/uL (130-400); RED BLOOD CELL COUNT 3.94 mill/uL (4.7-6.1); RED CELL DISTRIBUTION WIDTH 13.6 % (11.6-14.6)
[2020-03-25 07:03] LABS: CHLORIDE 99 mEq/L (98-107)
[2020-03-25 08:00] VITALS: BP 129/62
[2020-03-25] MEDS: FAMOTIDINE 20MG/2ML VIAL IV SCH (09:49)
[2020-03-25] MEDS: GUAIFENESIN 600MG ER TABLET PO SCH ×2 (09:49→22:43)
[2020-03-25] MEDS: LOSARTAN POTASSIUM 100 MG TABLET PO SCH (09:49)
[2020-03-25] MEDS: MYCOPHENOLATE MOFETIL 250MG CAPSULE PO SCH ×2 (09:49→22:43)
[2020-03-25] MEDS: ENOXAPARIN 60MG/0.6ML SYR SUBCUT SCH ×2 (09:50→22:44)
[2020-03-25] MEDS: AMLODIPINE 5MG TABLET PO SCH ×2 (10:32→22:43)
[2020-03-25] MEDS: INSULIN GLARGINE UD 100 UNITS/ML SYR SUBCUT SCH ×2 (10:33→22:00)
[2020-03-25 12:00] VITALS: BP 104/61
[2020-03-25] MEDS: ACETAMINOPHEN 325MG TABLET PO PRN ×2 (14:47→17:42)
[2020-03-25 15:18] LABS: PLATELET ESTIMATE NORMAL
[2020-03-25 16:00] VITALS: BP 99/56
[2020-03-25] MEDS: DIPHENHYDRAMINE 50MG/ML VIAL IV PRN (22:44)
[2020-03-25] MEDS: BENZONATATE 100MG CAPSULE PO PRN (22:45)
[2020-03-26] MEDS: ACETAMINOPHEN 325MG TABLET PO PRN (01:16)
[2020-03-26] MEDS: ALBUTEROL 6.7GM HFA INHALER ORI SCH ×5 (05:35→21:55)
[2020-03-26] MEDS: SODIUM CHLORIDE 0.9% INJ 3ML FLUSH IVF SCH ×2 (05:35→21:46)
[2020-03-26] MEDS: BLOOD SUGAR DIAGNOSTIC STRIP TEST SCH ×4 (06:39→21:47)
[2020-03-26] MEDS: INSULIN LISPRO 100 UNITS/ML SUBCUT SCH ×4 (07:50→21:00)
[2020-03-26 08:49] VITALS: BP 117/67
[2020-03-26] MEDS: GUAIFENESIN 600MG ER TABLET PO SCH ×2 (11:18→21:46)
[2020-03-26] MEDS: MYCOPHENOLATE MOFETIL 250MG CAPSULE PO SCH ×2 (11:18→21:46)
[2020-03-26] MEDS: LOSARTAN POTASSIUM 100 MG TABLET PO SCH (11:18)
[2020-03-26] MEDS: AMLODIPINE 5MG TABLET PO SCH ×2 (11:19→21:46)
[2020-03-26] MEDS: ENOXAPARIN 60MG/0.6ML SYR SUBCUT SCH ×2 (11:20→21:48)
[2020-03-26] MEDS: FAMOTIDINE 20MG/2ML VIAL IV SCH (11:21)
[2020-03-26] MEDS: INSULIN GLARGINE UD 100 UNITS/ML SYR SUBCUT SCH ×2 (11:32→21:52)
[2020-03-26 12:27] VITALS: BP 136/79
[2020-03-26 15:47] VITALS: BP 109/64
[2020-03-26 20:00] VITALS: BP 114/61
[2020-03-26] MEDS: DIPHENHYDRAMINE 50MG/ML VIAL IV PRN (21:48)
[2020-03-27] VITALS: BP 111/67
[2020-03-27 04:00] VITALS: BP 110/64
[2020-03-27] MEDS: ALBUTEROL 6.7GM HFA INHALER ORI SCH ×3 (06:44→18:12)
[2020-03-27] MEDS: SODIUM CHLORIDE 0.9% INJ 3ML FLUSH IVF SCH ×3 (06:44→21:39)
[2020-03-27] MEDS: BLOOD SUGAR DIAGNOSTIC STRIP TEST SCH ×4 (06:44→21:31)
[2020-03-27] MEDS: INSULIN LISPRO 100 UNITS/ML SUBCUT SCH ×4 (07:50→21:00)
[2020-03-27 08:00] VITALS: BP 144/78
[2020-03-27] MEDS: FAMOTIDINE 20MG/2ML VIAL IV SCH (10:10)
[2020-03-27] MEDS: AMLODIPINE 5MG TABLET PO SCH ×2 (10:11→21:00)
[2020-03-27] MEDS: ENOXAPARIN 60MG/0.6ML SYR SUBCUT SCH ×2 (10:11→21:39)
[2020-03-27] MEDS: GUAIFENESIN 600MG ER TABLET PO SCH ×2 (10:11→21:39)
[2020-03-27] MEDS: LOSARTAN POTASSIUM 100 MG TABLET PO SCH (10:11)
[2020-03-27] MEDS: MYCOPHENOLATE MOFETIL 250MG CAPSULE PO SCH ×2 (10:12→21:39)
[2020-03-27] MEDS: BENZONATATE 100MG CAPSULE PO PRN (11:03)
[2020-03-27] MEDS: INSULIN GLARGINE UD 100 UNITS/ML SYR SUBCUT SCH ×2 (11:05→21:40)
[2020-03-27 12:00] VITALS: BP 145/76
[2020-03-27 16:00] VITALS: BP 130/71
[2020-03-27] MEDS: ERGOCALCIFEROL 50000UNITS CAPSULE PO SCH (18:11)
[2020-03-27 20:00] VITALS: BP 118/72
[2020-03-28] VITALS: BP 112/69
[2020-03-28] MEDS: ALBUTEROL 6.7GM HFA INHALER ORI SCH ×3 (01:17→12:00)
[2020-03-28] MEDS: DIPHENHYDRAMINE 50MG/ML VIAL IV PRN (01:17)
[2020-03-28 04:00] VITALS: BP 109/70
[2020-03-28] MEDS: BLOOD SUGAR DIAGNOSTIC STRIP TEST SCH ×2 (07:03→12:03)
[2020-03-28] MEDS: SODIUM CHLORIDE 0.9% INJ 3ML FLUSH IVF SCH ×2 (07:04→14:58)
[2020-03-28 07:05] LABS: CHLORIDE 105 mEq/L (98-107)
[2020-03-28 07:08] LABS: BASOPHILS % 0.9 % (0.0-2.0); EOSINOPHILS % 3.1 % (0.0-5.0); HEMATOCRIT. 36.3 % (42.0-52.0); LYMPHOCYTES % 22.4 % (20.0-50.0); MEAN CORPUSCULAR HEMOGLOBIN 31.5 pg (28.0-32.0); MEAN CORPUSCULAR VOLUME 94.9 fL (80.0-94.0); MONOCYTES % 14.2 % (2.0-8.0); NEUTROPHILS % 59.4 % (40.0-76.0); PLATELET 329 x1000/uL (130-400); RED BLOOD CELL COUNT 3.82 mill/uL (4.7-6.1); RED CELL DISTRIBUTION WIDTH 14.2 % (11.6-14.6)
[2020-03-28 08:00] VITALS: BP 129/69
[2020-03-28] MEDS: LOSARTAN POTASSIUM 100 MG TABLET PO SCH (08:36)
[2020-03-28] MEDS: GUAIFENESIN 600MG ER TABLET PO SCH (08:36)
[2020-03-28] MEDS: MYCOPHENOLATE MOFETIL 250MG CAPSULE PO SCH (08:36)
[2020-03-28] MEDS: FAMOTIDINE 20MG/2ML VIAL IV SCH (08:36)
[2020-03-28] MEDS: AMLODIPINE 5MG TABLET PO SCH (08:39)
[2020-03-28] MEDS: INSULIN LISPRO 100 UNITS/ML SUBCUT SCH ×2 (08:42→12:00)
[2020-03-28] MEDS: ENOXAPARIN 60MG/0.6ML SYR SUBCUT SCH (10:24)
[2020-03-28] MEDS: INSULIN GLARGINE UD 100 UNITS/ML SYR SUBCUT SCH (10:25)
[2020-03-28 12:00] VITALS: BP 131/66
[2020-03-28 15:50] VITALS: BP 131/66
[2020-03-28 16:00] VITALS: BP 131/76
== END 2020-03-28 17:34 | disposition home or self-care (01) | DRG 871 ==
LOC: ER 15:32 → 8WST 21:25 → EDBEDREQTM 21:38 → EDBEDREQ 21:38 → CANRESERV 03-11 10:19 → ENRESERV 03-11 10:19 → 6WST 03-25 21:21
PROVIDERS: ADMIT Internal Medicine; ATTEND Internal Medicine
DX: A41.89 Other specified sepsis (principal); J12.89 Other viral pneumonia; N17.0 Acute kidney failure with tubular necrosis; J96.01 Acute respiratory failure with hypoxia; U07.1 COVID-19; E44.0 Moderate protein-calorie malnutrition; E87.1 Hypo-osmolality and hyponatremia; N17.9 Acute kidney failure, unspecified; D84.9 Immunodeficiency, unspecified; T86.19 Other complication of kidney transplant; E11.22 Type 2 diabetes mellitus with diabetic chronic kidney disease; E87.5 Hyperkalemia; E87.70 Fluid overload, unspecified; I12.9 Hypertensive chronic kidney disease with stage 1 through stage 4 chronic kidney disease, or unspecified chronic kidney disease; N18.9 Chronic kidney disease, unspecified; Y83.0 Surgical operation with transplant of whole organ as the cause of abnormal reaction of the patient, or of later complication, without mention of misadventure at the time of the procedure; I95.9 Hypotension, unspecified; Z79.899 Other long term (current) drug therapy; Z68.22 Body mass index [BMI] 22.0-22.9, adult
CPT/HCPCS: 36415; 36600; 71045; 80048; 80053; 82375; 82533; 82728; 82805; 82962; 83036; 83615; 83735; 83880; 83930; 84100; 84132; 84145; 84295; 84443; 84484; 85025; 85379; 87426; 87635; 93005; 96360; 99291; C1893; J0456; J0696; J1100; J1200; J1650; J1815; J2270; J3490; J7040; J7060; J7517